=== PATIENT | female | born 1975 | race Two or more races ===

== ENCOUNTER 2016-12-28 09:30 | Emergency (ER) | payer MEDICAID ==
[~2016-12-28] VITALS: Ht 154.9 cm; Wt 75.3 kg
[~2016-12-28 09:30] MED LIST: ALBUTEROL SULF8.5 GM INH; AZITHROMYCIN250 MG ORAL; IBUPROFEN200 M2 ORAL; IBUPROFEN600 MG ORAL; IBUPROFEN600 MG PO; IBUPROFEN800 M1 PO; KEFLEX500 MG ORAL; NORCO 5-325 TA1 EAC1 ORAL; NORCO 5-325 TA1 EACH ORAL; OMEPRAZOLE40 M1 ORAL; PANTOPRAZOLE SO40 MG ORAL; PROMETHAZINE-C118 M1 ORAL; VALIUM5 MG ORAL; ZOFRAN4 MG ORAL
[2016-12-28] MEDS ORDERED: NKM (09:50)
[2016-12-28] MEDS ORDERED: Levofloxacin 500mg tab ORAL ONE (10:15)
--- NOTE | 2016-12-28 10:15 | Emergency Room Report ---
History of Present Illness General Chief Complaint: General Complaint Source: Patient Present Illness HPI Patient is 2 weeks of intermittent upper respiratory infection. Currently she' s got yellow phlegm yellow discharge from the nose and left ear pain. She's also had fevers and chills last night. She took ibuprofen which did not help. She complains about right-sided chest pain also. She has never had pneumonia and does not herself wheezing (prior rx for albuterol). Pain in chest 8/10, pleuritic. No dyspnea. Last period was 2 weeks ago. She denies any nausea vomiting diarrhea however she does have some epigastric discomfort when she takes ibuprofen. In addition to that she has gallstones and wonders whether the right-sided chest pain is related to that. She has intermittent pain from the gall stones but not recently. No dysuria. No flu shot. 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 Period: a week ago Reviewed Nursing Documentation: PMH: Agreed, PSxH: Agreed Nursing Documentation-PMH Past Medical History: No History, Except For Hx Gastrointestinal Problems: Yes - gallstones Review of Systems All Other Systems: negative except mentioned in HPI Physical Exam Vital Signs Date Time Temp Pulse Resp B/P Pulse Ox O2 Delivery O2 Flow Rate FiO2 12/28/16 09:45 97.9 89 16 136/89 99 Room Air Sp02 EP Interpretation: reviewed, normal General Appearance: well appearing, no apparent distress, GCS 15 Head: normocephalic, atraumatic Eyes: bilateral eye PERRL, bilateral eye normal inspection ENT: hearing grossly normal, normal pharynx, normal voice, other - L TM red Neck: full range of motion, supple, no meningismus Respiratory: lungs clear, normal breath sounds, no respiratory distress, speaking full sentences, other - min R chest wall tenderness Cardiovascular #1: regular rate, rhythm Cardiovascular #2: 2+ radial (L) Gastrointestinal: normal inspection, non tender, soft, no mass, non-distended, no guarding Musculoskeletal: digits/nails normal, gait/station normal, normal range of motion Neurologic: alert, normal gait, grossly normal Psychiatric: mood/affect normal Skin: no rash Medical Decision Making Diagnostic Impression: Primary Impression: Earache, left Additional Impressions: Upper respiratory infection Qualified Codes: J06.9 - Acute upper respiratory infection, unspecified Chest pain Qualified Codes: R07.1 - Chest pain on breathing Gallstone Qualified Codes: K80.20 - Calculus of gallbladder without cholecystitis without obstruction ER Course Patient with 2 weeks of URI, now with ear pain and productive sputum and chest pain. Ddx: pneumonia, otitis, bronchitis, pleurisy. H/O gall stones, but exam benign. O2 sat against pneumonia. No labs indicated as clinical diagnosis. Evidence of L otitis media. Antibiotics indicated. Also treated for pain. Pain better. Patient stable for outpatient observation and treatment Last Vital Signs Date Time Temp Pulse Resp B/P Pulse Ox O2 Delivery O2 Flow Rate FiO2 12/28/16 09:45 97.9 89 16 136/89 99 Room Air Status: improved Disposition: HOME, SELF-CARE Condition: Improved Scripts Chlorpheniramine Maleate (Chlorpheniramine Maleate) 4 Mg Tablet 4 MG PO congestion, #14 TAB Prov: Louis Vasquez M.D. 12/28/16 Tramadol Hcl* (ULTRAM*) 50 Mg Tablet 50 MG ORAL Q6H Y for For Pain, #10 TAB 0 Refills Prov: Louis Vasquez M.D. 12/28/16 Codeine/Promethazine Hcl* (PROMETHAZINE-CODEINE SYRUP*) 118 Ml Syrup 5 ML ORAL Q4H Y for For Cough, #60 ML 0 Refills Prov: Louis Vasquez M.D. 12/28/16 Levofloxacin* (LEVAQUIN*) 500 Mg Tablet 500 MG ORAL DAILY, #7 TAB Prov: Louis Vasquez M.D. 12/28/16 Louis Vasquez M.D. Dec 28, 2016 10:15
[2016-12-28] MEDS ORDERED: CHLORPHENIRAMINE4 M1 PO (10:25)
[2016-12-28] MEDS ORDERED: PROMETHAZINE-C118 M1 ORAL (10:25)
[2016-12-28] MEDS ORDERED: TRAMADOL HCL50 MG ORAL (10:25)
[2016-12-28] MEDS ORDERED: LEVAQUIN500 MG ORAL (10:25)
[2016-12-28 10:43] VITALS: BP 136/89
[2016-12-28 10:44] VITALS: BP 136/89
== END 2016-12-28 10:45 | disposition home or self-care (01) ==
LOC: EMR 10:25
DX: H92.02 Otalgia, left ear (principal); J06.9 Acute upper respiratory infection, unspecified; R07.1 Chest pain on breathing; K80.20 Calculus of gallbladder without cholecystitis without obstruction
CPT/HCPCS: 99284

== ENCOUNTER 2017-01-06 00:07 | Emergency (ER) | payer MEDICAID ==
[~2017-01-06] VITALS: Ht 152.4 cm; Wt 74.8 kg
[~2017-01-06 00:07] MED LIST changes: +CHLORPHENIRAMINE4 M1 PO; +LEVAQUIN500 MG ORAL; +NKM; +TRAMADOL HCL50 MG ORAL
[2017-01-06 00:31] VITALS: BP 126/74
[2017-01-06] MEDS ORDERED: DEBROX15 M1 BOTH EARS (00:50)
[2017-01-06] MEDS ORDERED: Ketorolac 60mg Inj IM ONE (01:00)
[2017-01-06 01:16] VITALS: BP 126/74
--- NOTE | 2017-01-06 01:48 | Emergency Room Report ---
History of Present Illness General Chief Complaint: Chest Pain Source: Patient Present Illness HPI 41 YO F with right sided chest pain, radiating to back, right shoulder and right arm for >14 hours. Pain comes and goes. 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 Pain is worse with movement, right shoulder movement, reproducible. Has been taking tramadol and Abx for left sided "ear infection," just finished Abx today. Denies history of DM, HTN, HLD, smoking, ETOH, drug use. No previous AMI. No other medical problems. Allergies: Coded Allergies: No Known Allergies (Unverified , 12/10/13) Patient History Past Medical History: none Past Surgical History: none Pertinent Family History: none Social History: Denies: alcohol use, drug use, smoking Last Menstrual Period: 2 WEEKS AGO Now: No Immunizations: UTD Reviewed Nursing Documentation: PMH: Agreed, PSxH: Agreed Nursing Documentation-PMH Hx Gastrointestinal Problems: Yes - gallstones Review of Systems All Other Systems: negative except mentioned in HPI Physical Exam Vital Signs Date Time Temp Pulse Resp B/P Pulse Ox O2 Delivery O2 Flow Rate FiO2 01/06/17 00:12 97.3 78 16 136/87 98 Room Air Sp02 EP Interpretation: reviewed, normal General Appearance: normal inspection, well appearing, no apparent distress, alert, GCS 15, non-toxic Head: normocephalic, atraumatic Eyes: bilateral eye EOMI, bilateral eye PERRL ENT: normal ENT inspection, hearing grossly normal, normal voice, other - Bilateral cerumen; able to visualize left TM, no sign of bulging or erythema or infection. No ttp to pinna Neck: normal inspection, full range of motion, supple, no bony tend Respiratory: normal inspection, lungs clear, normal breath sounds, no respiratory distress, no retraction, no wheezing, other - Palpation of right chest produces pain, chest symmetrical Cardiovascular #1: regular rate, rhythm, no edema Gastrointestinal: normal inspection, normal bowel sounds, non tender, soft, no guarding, no hernia Genitourinary: no CVA tenderness Musculoskeletal: normal inspection, back normal, normal range of motion, Jada' s Sign negative, other - Right shoulder, right upper back and right arm all tender to palpation. No sign of trauma or infection. ROM intact, tender Neurologic: normal inspection, alert, oriented x3, responsive, teaching artist III-XII nml as tested, motor strength/tone normal, speech normal Psychiatric: normal inspection, judgement/insight normal, mood/affect normal Skin: normal inspection, normal color, no rash Lymphatic: normal inspection Medical Decision Making Diagnostic Impression: Primary Impression: Musculoskeletal pain Additional Impression: Cerumen impaction Qualified Codes: H61.23 - Impacted cerumen, bilateral ER Course Resolved left otitis media. Bilateral cerumen. Advised to STOP using Qtips. Debrox Rx given Most likely MSK pain. Reproducible, worse with movement. Likely occupation related. ECG done as screening exam. NSR. No ischemia. IM toradol given in ED with resolution of pain DC home Recommended PMD followup EKG Diagnostic Results Rate: normal Rhythm: NSR ST Segments: no acute changes ASA given to the pt in ED: No Rhythm Strip Diag. Results EP Interpretation: yes Rate: 77 Rhythm: NSR, no PVC's, no ectopy Last Vital Signs Date Time Temp Pulse Resp B/P Pulse Ox O2 Delivery O2 Flow Rate FiO2 01/06/17 01:16 97.3 16 126/74 98 Room Air 01/06/17 00:33 78 Status: improved Disposition: HOME, SELF-CARE Condition: Improved Scripts Carbamide Peroxide (DEBROX) 15 Ml Drops 10 DROP BOTH EARS TWICE A DAY for 4 Days, ML 0 Refills Prov: RANDY YOUNG M.D. 01/06/17 Patient Instructions: Cerumen Impaction, Nonspecific Chest Pain, Musculoskeletal Pain Additional Instructions: - Use ear drops as prescribed to remove wax - STOP using Qtips - Take Tramadol as needed for pain - Follow up with your doctor in 2-3 days RANDY YOUNG M.D. Jan 06, 2017 01:48
--- NOTE | 2017-01-06 13:45 | Cardiology Report ---
APPROVED REPORT EKG Measurement Heart [id number] Normal sinus rhythm Cannot rule out Anterior infarct, age undetermined Abnormal ECG
== END 2017-01-06 01:18 | disposition home or self-care (01) ==
LOC: EMR 00:32
DX: M79.1 Myalgia (principal); H61.23 Impacted cerumen, bilateral
CPT/HCPCS: 93005; 96372; 99283

== ENCOUNTER 2017-04-04 09:47 | Emergency (ER) | payer MEDICAID ==
[~2017-04-04] VITALS: Ht 160 cm; Wt 77.1 kg
[~2017-04-04 09:47] MED LIST changes: +DEBROX15 M1 BOTH EARS
[2017-04-04] MEDS ORDERED: Famotidine 20 MG/ 2ML VIAL IVP ONE (10:15)
[2017-04-04] MEDS ORDERED: fentaNYL 100 mcg/2 mL IV ONE (10:15)
--- NOTE | 2017-04-04 10:15 | Emergency Room Report ---
History of Present Illness General Chief Complaint: Abdominal Pain Source: Patient Present Illness HPI Patient presents with epigastric pain and headache that began yesterday. She's been vomiting a lot. Has a history of gallstones. Headache is 8/10 as the abdominal pain. Abdominal pain radiates somewhat towards her back. She's had some loose stools have been brown and rollins color. No blood. Her last period was last month and normal for her. She denies any dysuria. She's had some aches in her legs before all this began. She's never had headaches like this before. Is not severe or thunderclap. It's frontal and occipital. There's no neck pain. There's no change in vision. She to took 2 Motrin 800 mg tablets last night and states that did not help. Addition to that she also took Tylenol. Allergies: Coded Allergies: No Known Allergies (Unverified , 12/10/13) Patient History Past Medical History: see triage record Social History: Denies: smoking Social History Narrative from home Last Menstrual Period: 03/05/17 Now: No Reviewed Nursing Documentation: PMH: Agreed, PSxH: Agreed Nursing Documentation-PMH Hx Gastrointestinal Problems: Yes - gallstones Review of Systems All Other Systems: negative except mentioned in HPI Physical Exam Vital Signs Date Time Temp Pulse Resp B/P Pulse Ox O2 Delivery O2 Flow Rate FiO2 04/04/17 09:51 99.0 97 15 119/81 96 Room Air Sp02 EP Interpretation: reviewed, normal General Appearance: well appearing, no apparent distress, GCS 15 Head: normocephalic Eyes: bilateral eye PERRL, bilateral eye anticteric, bilateral eye normal inspection ENT: moist mucus membranes Neck: full range of motion, supple, no meningismus Respiratory: lungs clear, normal breath sounds Cardiovascular #1: regular rate, rhythm Cardiovascular #2: 2+ radial (R) Gastrointestinal: normal inspection, normal bowel sounds, no mass, non- distended, no guarding, no rebound, tenderness - epigastric Musculoskeletal: back normal, gait/station normal, normal range of motion Neurologic: alert, oriented x3, remote sensing technologist III-XII nml as tested, motor strength/tone normal, DTRs symmetric, sensory intact, cerebellar normal, normal gait, speech normal Psychiatric: mood/affect normal Skin: normal inspection, warm/dry Medical Decision Making Diagnostic Impression: Primary Impression: Abdominal pain Qualified Codes: R10.13 - Epigastric pain Additional Impressions: UTI (urinary tract infection) Qualified Codes: N30.00 - Acute cystitis without hematuria Head ache Qualified Codes: R51 - Headache ER Course Patient presents with headache and right upper quadrant pain with vomiting slight diarrhea and some myalgias. Differential includes food poisoning, exacerbation of gallstones, cholecystitis, peptic ulcer disease, gastritis, gastroenteritis amongst others. Patient will undergo evaluation with labs. The patient will be treated IV hydration, Zofran, Pepcid and fentanyl. Labs significant for normal WBC an LFTs/lipase. + UTI. Rocephin given. Improved with treatment. Naresh PO. Patient stable for outpatient observation and treatment. Laboratory Tests Test 04/04/17 10:25 White Blood Count 8.2 K/UL (4.8-10.8) Red Blood Count 4.74 M/UL (4.20-5.40) Hemoglobin 13.9 G/DL (12.0-16.0) Hematocrit 40.7 % (37.0-47.0) Mean Corpuscular Volume 86 FL (80-99) Mean Corpuscular Hemoglobin 29.3 PG (27.0-31.0) Mean Corpuscular Hemoglobin Concent 34.2 G/DL (32.0-36.0) Red Cell Distribution Width 11.3 % (11.6-14.8) L Platelet Count 208 K/UL (150-450) Mean Platelet Volume 7.1 FL (6.5-10.1) Neutrophils (%) (Auto) 79.3 % (45.0-75.0) H Lymphocytes (%) (Auto) 14.4 % (20.0-45.0) L Monocytes (%) (Auto) 5.2 % (1.0-10.0) Eosinophils (%) (Auto) 0.6 % (0.0-3.0) Basophils (%) (Auto) 0.6 % (0.0-2.0) Urine Color Pale yellow Urine Appearance Slightly cloudy Urine pH 5 (4.5-8.0) Urine Specific [place] 1.010 (1.005-1.035) Urine Protein Negative (NEGATIVE) Urine Glucose (UA) Negative (NEGATIVE) Urine Ketones Negative (NEGATIVE) Urine Occult Blood 2+ (NEGATIVE) H Urine Nitrite Negative (NEGATIVE) Urine Bilirubin Negative (NEGATIVE) Urine Urobilinogen Normal MG/DL (0.0-1.0) Urine Leukocyte Esterase 2+ (NEGATIVE) H Urine RBC 2-4 /HPF (0 - 2) H Urine WBC 5-10 /HPF (0 - 2) H Urine Squamous Epithelial Cells Moderate /LPF (NONE/OCC) H Urine Bacteria Few /HPF (NONE) Urine HCG, Qualitative Negative Sodium Level 134 mEQ/L (135-145) L Potassium Level 3.5 mEQ/L (3.4-4.9) Chloride Level 94 mEQ/L (98-107) L Carbon Dioxide Level 23 mEQ/L (20-30) Anion Gap 17 (5-15) H Blood Urea Nitrogen 7 mg/dL (7-23) Creatinine 0.7 mg/dL (0.5-0.9) Estimate Glomerular Filtration Rate > 60 mL/min (>60) Glucose Level 156 mg/dL (74-106) H Calcium Level 9.4 mg/dL (8.6-10.2) Total Bilirubin 0.6 mg/dL (0.0-1.2) Aspartate Amino Transferase (AST) 22 U/L (5-40) Alanine Aminotransferase (ALT) 33 U/L (3-33) Alkaline Phosphatase 54 U/L (35-104) Total Protein 7.5 g/dL (6.6-8.7) Albumin 4.6 g/dL (3.5-5.2) Globulin 2.9 g/dL Albumin/Globulin Ratio 1.5 (1.0-2.7) Lipase 17 U/L (< 60) Last Vital Signs Date Time Temp Pulse Resp B/P Pulse Ox O2 Delivery O2 Flow Rate FiO2 04/04/17 13:57 88 16 110/70 98 Room Air 04/04/17 10:58 98.9 Status: improved Disposition: HOME, SELF-CARE Condition: Improved Scripts Tramadol Hcl* (ULTRAM*) 50 Mg Tablet 50 MG ORAL Q6H Y for For Pain, #10 TAB 0 Refills Prov: Louis Vasquez M.D. 04/04/17 Ondansetron Odt* (ZOFRAN ODT*) 4 Mg Tab.rapdis 4 MG ORAL EVERY 8 HOURS, #6 TAB 0 Refills Prov: Louis Vasquez M.D. 04/04/17 Nitrofurantoin Monohyd/M-Cryst* (MACROBID 100 MG*) 100 Mg Capsule 100 MG ORAL EVERY 12 HOURS, #14 CAP Prov: Louis Vasquez M.D. 04/04/17 Louis Vasquez M.D. April 04, 2017 10:15
[2017-04-04 10:25] VITALS: BP 130/83
[2017-04-04 10:38] LABS: APPEARANCE,URINE SLIGHTLY CLOUDY; KETONES,URINE NEGATIVE (NEGATIVE); LEUKOCYTE ESTERASE ,URINE 2+ (NEGATIVE); NITRITE,URINE NEGATIVE (NEGATIVE); PH,URINE 5 (4.5-8.0); PROTEIN,URINE NEGATIVE (NEGATIVE); UROBILINOGEN,URINE NORMAL MG/DL (0.0-1.0)
[2017-04-04 10:43] LABS: BASOPHILS % (AUTO) 0.6 % (0.0-2.0); EOSINOPHILS % (AUTO) 0.6 % (0.0-3.0); LYMPHOCYTES % (AUTO) 14.4 % (20.0-45.0); MEAN CORPUSCULAR HEMOGLOBIN 29.3 PG (27.0-31.0); MEAN CORPUSCULAR HGB CONC 34.2 G/DL (32.0-36.0); MEAN CORPUSCULAR VOLUME 86 FL (80-99); MEAN PLATELET VOLUME 7.1 FL (6.5-10.1); MONOCYTES % (AUTO) 5.2 % (1.0-10.0); NEUTROPHILS % (AUTO) 79.3 % (45.0-75.0); PLATELET COUNT 208 K/UL (150-450); RED BLOOD COUNT 4.74 M/UL (4.20-5.40); RED CELL DISTRIBUTION WIDTH 11.3 % (11.6-14.8); WHITE BLOOD COUNT 8.2 K/UL (4.8-10.8)
[2017-04-04 10:48] LABS: BACTERIA,URINE FEW /HPF; SQUAMOUS EPITHELIAL CELL,UR MODERATE /LPF (NONE/OCC)
[2017-04-04 10:49] LABS: ALANINE AMINOTRANSFERASE 33 U/L (3-33); ALBUMIN/GLOBULIN RATIO 1.5 (1.0-2.7); ANION GAP 17 (5-15); ASPARTATE AMINO TRANSFERASE 22 U/L (5-40); CALCIUM 9.4 mg/dL (8.6-10.2); CARBON DIOXIDE 23 mEQ/L (20-30); CHLORIDE 94 mEQ/L (98-107); CREATININE 0.7 mg/dL (0.5-0.9); GLOMERULAR FILTRATION RATE > 60 mL/min (>60); HEMOLYSIS 3; LIPASE 17 U/L (< 60); POTASSIUM 3.5 mEQ/L (3.4-4.9); SODIUM 134 mEQ/L (135-145); TOTAL PROTEIN 7.5 g/dL (6.6-8.7)
[2017-04-04 11:57] VITALS: BP 116/78
[2017-04-04] MEDS ORDERED: cefTRIAXone 1 GM in NS 55 ML IVPB ONE (12:45)
[2017-04-04 13:21] VITALS: BP 124/76
[2017-04-04] MEDS ORDERED: TRAMADOL HCL50 MG ORAL (13:47)
[2017-04-04] MEDS ORDERED: ONDANSETRON ODT4 MG ORAL (13:47)
[2017-04-04] MEDS ORDERED: NITROFURANTOIN100 M2 ORAL (13:47)
[2017-04-04 13:57] VITALS: BP 110/70
== END 2017-04-04 13:59 | disposition home or self-care (01) ==
LOC: EMR 10:13
DX: R10.13 Epigastric pain (principal); N30.00 Acute cystitis without hematuria; R51 Headache
CPT/HCPCS: 36415; 80053; 81003; 81025; 83690; 85025; 96360; 96374; 96375; 99284; J0696; J2405; J3010; S0028

== ENCOUNTER 2017-07-15 21:48 | Emergency (ER) | payer MEDICAID ==
[~2017-07-15] VITALS: Ht 152.4 cm; Wt 75.7 kg
[~2017-07-15 21:48] MED LIST changes: +NITROFURANTOIN100 M2 ORAL; +ONDANSETRON ODT4 MG ORAL
[2017-07-15 21:50] VITALS: BP 116/71
--- NOTE | 2017-07-15 22:25 | Emergency Room Report ---
History of Present Illness General Chief Complaint: Female Urogenital Problems Source: Patient Present Illness HPI Patient is a 41-year-old female who presented after increased abdominal discomfort as well as dysuria. She gradual onset of symptoms over the past few days. She denies being . She reports having a prior history of diabetes. She reported having increased urinary frequency. She had not been vomiting. She denied any diarrhea. Allergies: Coded Allergies: No Known Allergies (Unverified , 12/10/13) Patient History Past Medical History: see triage record Last Menstrual Period: JUN 20 Now: No Reviewed Nursing Documentation: PMH: Agreed, PSxH: Agreed Review of Systems All Other Systems: negative except mentioned in HPI Physical Exam Vital Signs Date Time Temp Pulse Resp B/P (MAP) Pulse Ox O2 Delivery O2 Flow Rate FiO2 07/15/17 21:50 97.7 106 18 116/71 98 Room Air Sp02 EP Interpretation: reviewed, normal General Appearance: normal inspection, well appearing, no apparent distress, alert, GCS 15 Head: atraumatic ENT: normal ENT inspection, hearing grossly normal, normal voice Neck: normal inspection, full range of motion, supple, no bony tend Respiratory: normal inspection, lungs clear, normal breath sounds, no respiratory distress, no retraction, no wheezing Cardiovascular #1: regular rate, rhythm, no edema Gastrointestinal: normal inspection, normal bowel sounds, non tender, soft, no guarding, no hernia Genitourinary: no CVA tenderness Musculoskeletal: normal inspection, back normal, normal range of motion Neurologic: normal inspection, alert, responsive, speech normal Psychiatric: normal inspection, judgement/insight normal, mood/affect normal Skin: normal inspection, normal color, no rash Medical Decision Making Diagnostic Impression: Primary Impression: UTI (urinary tract infection) ER Course Patient presented for abdominal pain. Differential diagnoses included ischemic bowel, appendicitis, perforated viscus, abdominal aortic aneurysm, inferior myocardial infarction, viral gastroenteritis Because of complexity of patient's case laboratory testing were ordered.Laboratory testing was notable for evidence of a mild urinary tract infection. The patient is advised to follow up with primary care doctor in 1- 2 days. Patient is advised to return if any worsening condition or if any changes in status that are concerning. Labs Test 07/15/17 21:50 Urine Color Pale yellow Urine Appearance Clear Urine pH 7 (4.5-8.0) Urine Specific [place] 1.005 (1.005-1.035) Urine Protein Negative (NEGATIVE) Urine Glucose (UA) Negative (NEGATIVE) Urine Ketones Negative (NEGATIVE) Urine Occult Blood Negative (NEGATIVE) Urine Nitrite Negative (NEGATIVE) Urine Bilirubin Negative (NEGATIVE) Urine Urobilinogen Normal MG/DL (0.0-1.0) Urine Leukocyte Esterase 2+ (NEGATIVE) Urine RBC 0-2 /HPF (0 - 2) Urine WBC 2-4 /HPF (0 - 2) Urine Squamous Epithelial Cells Few /LPF (NONE/OCC) Urine Amorphous Sediment Few /LPF (NONE) Urine Bacteria Few /HPF (NONE) Urine HCG, Qualitative Negative Last Vital Signs Date Time Temp Pulse Resp B/P (MAP) Pulse Ox O2 Delivery O2 Flow Rate FiO2 07/15/17 21:50 97.7 106 18 116/71 98 Room Air Status: improved Disposition: HOME, SELF-CARE Condition: Stable Scripts Cephalexin* (KEFLEX*) 500 Mg Capsule 500 MG ORAL Q6H, #28 CAP 0 Refills Prov: Osbaldo Gay 07/15/17 Referrals: NOT CHOSEN IPA/,REFERRING (PCP) Osbaldo Gay Jul 15, 2017 22:25
[2017-07-15 22:39] LABS: APPEARANCE,URINE CLEAR; KETONES,URINE NEGATIVE (NEGATIVE); LEUKOCYTE ESTERASE ,URINE 2+ (NEGATIVE); NITRITE,URINE NEGATIVE (NEGATIVE); PH,URINE 7 (4.5-8.0); PROTEIN,URINE NEGATIVE (NEGATIVE); UROBILINOGEN,URINE NORMAL MG/DL (0.0-1.0)
[2017-07-15 22:46] LABS: AMORPHOUS SEDIMENT,UR FEW /LPF; BACTERIA,URINE FEW /HPF; RBC,URINE 0-2 /HPF (0 - 2); SQUAMOUS EPITHELIAL CELL,UR FEW /LPF (NONE/OCC)
[2017-07-15] MEDS ORDERED: KEFLEX500 MG ORAL (22:56)
[2017-07-15 23:00] VITALS: BP 120/76
== END 2017-07-15 23:00 | disposition home or self-care (01) ==
LOC: EMR 22:00
DX: N39.0 Urinary tract infection, site not specified (principal); E11.9 Type 2 diabetes mellitus without complications
CPT/HCPCS: 81003; 81025; 82962; 99283

== ENCOUNTER 2019-02-18 16:52 | Emergency (ER) | payer MEDICAID ==
[~2019-02-18] VITALS: Ht 157.5 cm; Wt 76.7 kg
--- NOTE | 2019-02-18 17:09 | NUR ---
ED Nurse Note: Pt came in from home due to RUQ abdominal pain 10/10 chapito, no complaint of n/v/d. Pt stated she had hx of Gallstone and this pain "feels the same". AOx4, VSS. Will cont to monitor.
[2019-02-18 17:13] VITALS: BP 126/85
[2019-02-18] MEDS ORDERED: Morphine Sulfate 4mg/ml Inj (IV USE ONLY) IVP ONE (17:15)
[2019-02-18] MEDS ORDERED: Isovue-300 100ml vial INJ PRN (17:15)
--- NOTE | 2019-02-18 17:20 | NUR ---
ED Nurse Note: Blood and urine collected and sent to lab.
[2019-02-18 17:25] LABS: APPEARANCE,URINE CLEAR; BILIRUBIN, URINE NEGATIVE (NEGATIVE); COLOR,URINE PALE YELLOW; GLUCOSE, URINE (UA) 3+ (NEGATIVE); KETONES,URINE NEGATIVE (NEGATIVE); LEUKOCYTE ESTERASE ,URINE 2+ (NEGATIVE); NITRITE,URINE NEGATIVE (NEGATIVE); PH,URINE 6 (4.5-8.0); PROTEIN,URINE 1+ (NEGATIVE); UROBILINOGEN,URINE NORMAL MG/DL (0.0-1.0)
[2019-02-18 17:29] LABS: ANION GAP 9 mmol/L (5-15); BLOOD UREA NITROGEN 11 mg/dL (7-18); CALCIUM 8.7 MG/DL (8.5-10.1); CARBON DIOXIDE 28 MMOL/L (21-32); CHLORIDE 102 MMOL/L (98-107); CREATININE 0.7 MG/DL (0.55-1.30); POTASSIUM 3.9 MMOL/L (3.5-5.1); SODIUM 139 MMOL/L (136-145)
[2019-02-18 17:30] LABS: BASOPHILS % (AUTO) 1.3 % (0.0-2.0); EOSINOPHILS % (AUTO) 5.1 % (0.0-3.0); HEMATOCRIT 38.6 % (37.0-47.0); HEMOGLOBIN 13.2 G/DL (12.0-16.0); LYMPHOCYTES % (AUTO) 40.4 % (20.0-45.0); MEAN CORPUSCULAR VOLUME 86 FL (80-99); MONOCYTES % (AUTO) 7.2 % (1.0-10.0); NEUTROPHILS % (AUTO) 46.1 % (45.0-75.0); PLATELET COUNT 220 K/UL (150-450); RED BLOOD COUNT 4.51 M/UL (4.20-5.40); RED CELL DISTRIBUTION WIDTH 11.4 % (11.6-14.8)
[2019-02-18] MEDS ORDERED: Tylenol #3 tab (300mg/30mg) ORAL ONE (17:30)
[2019-02-18 17:33] LABS: ALANINE AMINOTRANSFERASE 44 U/L (12-78); ALBUMIN 4.2 G/DL (3.4-5.0); ALBUMIN/GLOBULIN RATIO 1.2 (1.0-2.7); ALKALINE PHOSPHATASE 82 U/L (46-116); ASPARTATE AMINO TRANSFERASE 17 U/L (15-37); BILIRUBIN,TOTAL 0.2 MG/DL (0.2-1.0)
--- NOTE | 2019-02-18 17:57 | Emergency Room Report ---
History of Present Illness General Chief Complaint: Abdominal Pain Source: Patient, Medical Record Present Illness HPI 43-year-old female presents ED for evaluation.patient c/o R sided abd pain. started 1 hour ago. sharp, 9/10 nonradiating. localized to RUQ. h/o galllstones. deies fevers or chills. denies nausea or vomiting. No other aggravating relieving factors. Denies any other associated symptoms Allergies: Coded Allergies: No Known Allergies (Unverified , 12/10/13) Patient History Past Medical History: none Past Surgical History: none Pertinent Family History: none Social History: Denies: smoking, alcohol use, drug use Last Menstrual Period: 02/14/19 Now: No Immunizations: UTD Reviewed Nursing Documentation: PMH: Agreed; PSxH: Agreed Nursing Documentation-PMH Past Medical History: No History, Except For Hx Cardiac Problems: No - Gall stones Hx Dialysis: No - CHOLECYSTITIS Review of Systems All Other Systems: negative except mentioned in HPI Physical Exam Vital Signs Date Time Temp Pulse Resp B/P (MAP) Pulse Ox O2 Delivery O2 Flow Rate FiO2 02/18/19 16:55 98.4 72 18 143/85 98 Room Air Sp02 EP Interpretation: reviewed, normal General Appearance: no apparent distress, alert, GCS 15, non-toxic Head: normocephalic, atraumatic Eyes: bilateral eye normal inspection, bilateral eye PERRL ENT: hearing grossly normal, normal pharynx, no angioedema, normal voice Neck: full range of motion, supple/symm/no masses Respiratory: chest non-tender, lungs clear, normal breath sounds, speaking full sentences Cardiovascular #1: regular rate, rhythm, no edema Cardiovascular #2: 2+ carotid (R), 2+ carotid (L), 2+ radial (R), 2+ radial (L) , 2+ dorsalis pedis (R), 2+ dorsalis pedis (L) Gastrointestinal: normal bowel sounds, soft, non-distended, no guarding, no rebound, tenderness - RUQ Rectal: deferred Genitourinary: normal inspection, no CVA tenderness Musculoskeletal: back normal, gait/station normal, normal range of motion, non- tender Neurologic: alert, oriented x3, responsive, motor strength/tone normal, sensory intact, speech normal Psychiatric: judgement/insight normal, memory normal, mood/affect normal, no suicidal/homicidal ideation Reflexes: 3+ bicep (R), 3+ bicep (L), 3+ tricep (R), 3+ tricep (L), 3+ knee (R) , 3+ knee (L) Skin: normal color, no rash, warm/dry, well hydrated Lymphatic: no adenopathy Medical Decision Making Diagnostic Impression: Primary Impression: Cholelithiasis Qualified Codes: K80.20 - Calculus of gallbladder without cholecystitis without obstruction ER Course Hospital Course 43 yo F presents to ED c/o RUQ pain. h/o gallstones Differential diagnosis includes-appendicitis, cholecystitis, small bowel obstruction, gastritis, Clinical course Patient placed on stretcher. After initial history and physical I ordered labs , IV fluids, pain medications and CT scan Labs - no leukocytosis, electrolytes ok, LFTs normal CT scan shows gallstones but no gallbladder obstruction or distention area no Gallbladder wall thickening. No pericholecystic fluid Discussed findings with patient. No signs of cholecystitis. No signs of biliary obstruction. Patient will be discharged to home. Does not have a PMD. We'll provide referrals I feel this is a highly complex case requiring extensive working including EKG/ Rhythm strip, Xray/CT/US, Blood/urine lab work, repeat exams while in ED, and administration of strong opiates/narcotics for pain control, admission to hospital or close patient follow up. Diagnosis - cholelithiasis Stable and discharged to home with Rx Tylenol #3. Followup with PMD. Return to ED if symptoms recur or worsen Labs Test 02/18/19 17:06 White Blood Count 7.0 K/UL (4.8-10.8) Red Blood Count 4.51 M/UL (4.20-5.40) Hemoglobin 13.2 G/DL (12.0-16.0) Hematocrit 38.6 % (37.0-47.0) Mean Corpuscular Volume 86 FL (80-99) Mean Corpuscular Hemoglobin 29.2 PG (27.0-31.0) Mean Corpuscular Hemoglobin Concent 34.1 G/DL (32.0-36.0) Red Cell Distribution Width 11.4 % (11.6-14.8) Platelet Count 220 K/UL (150-450) Mean Platelet Volume 6.6 FL (6.5-10.1) Neutrophils (%) (Auto) 46.1 % (45.0-75.0) Lymphocytes (%) (Auto) 40.4 % (20.0-45.0) Monocytes (%) (Auto) 7.2 % (1.0-10.0) Eosinophils (%) (Auto) 5.1 % (0.0-3.0) Basophils (%) (Auto) 1.3 % (0.0-2.0) Urine Color Pale yellow Urine Appearance Clear Urine pH 6 (4.5-8.0) Urine Specific [place] 1.005 (1.005-1.035) Urine Protein 1+ (NEGATIVE) Urine Glucose (UA) 3+ (NEGATIVE) Urine Ketones Negative (NEGATIVE) Urine Blood 5+ (NEGATIVE) Urine Nitrite Negative (NEGATIVE) Urine Bilirubin Negative (NEGATIVE) Urine Urobilinogen Normal MG/DL (0.0-1.0) Urine Leukocyte Esterase 2+ (NEGATIVE) Urine RBC 5-10 /HPF (0 - 2) Urine WBC 2-4 /HPF (0 - 2) Urine Squamous Epithelial Cells Few /LPF (NONE/OCC) Urine Bacteria Few /HPF (NONE) Urine HCG, Qualitative Negative (NEGATIVE) Sodium Level 139 MMOL/L (136-145) Potassium Level 3.9 MMOL/L (3.5-5.1) Chloride Level 102 MMOL/L (98-107) Carbon Dioxide Level 28 MMOL/L (21-32) Anion Gap 9 mmol/L (5-15) Blood Urea Nitrogen 11 mg/dL (7-18) Creatinine 0.7 MG/DL (0.55-1.30) Estimat Glomerular Filtration Rate > 60 mL/min (>60) Glucose Level 195 MG/DL (74-106) Calcium Level 8.7 MG/DL (8.5-10.1) Total Bilirubin 0.2 MG/DL (0.2-1.0) Aspartate Amino Transf (AST/SGOT) 17 U/L (15-37) Alanine Aminotransferase (ALT/SGPT) 44 U/L (12-78) Alkaline Phosphatase 82 U/L (46-116) Total Protein 7.7 G/DL (6.4-8.2) Albumin 4.2 G/DL (3.4-5.0) Globulin 3.5 g/dL Albumin/Globulin Ratio 1.2 (1.0-2.7) Lipase 124 U/L (73-393) Human Chorionic Gonadotropin, Qual Negative (NEGATIVE) CT/MRI/US Diagnostic Results CT/MRI/US Diagnostic Results : Imaging Test Ordered: CT A/P Impression 2 partially calcified gallstones each measuring around 2 cm are near the area of the gallbladder neck with gallbladder distention measuring up to 5.5 cm in diameter axial 40 No surrounding inflammatory change, free fluid or evidence of wall thickening identified Clinically correlate Basilar atelectasis 1.4 cm nonspecific low-density focus within the upper spleen Abdominal solid organs appear within limits No bowel dilation or free air Normal caliber appendix without secondary signs No free fluid The urinary bladder is distended Last Vital Signs Date Time Temp Pulse Resp B/P (MAP) Pulse Ox O2 Delivery O2 Flow Rate FiO2 02/18/19 17:13 98.4 83 18 126/85 99 Room Air Status: improved Disposition: HOME, SELF-CARE Condition: Stable Scripts Acetaminophen With Codeine (T#3) (TYLENOL #3 TAB*) Y Tab 1 TAB ORAL Q8H PRN for For Pain, #10 TAB Prov: Brendan Mclaughlin MD 02/18/19 Referrals: NOT CHOSEN IPA/,REFERRING (PCP) Brendan Mclaughlin MD Feb 18, 2019 17:57
[2019-02-18 18:29] VITALS: BP 108/64
[2019-02-18] MEDS ORDERED: ACETAMINOPHEN-1 EAC1 ORAL (18:41)
[2019-02-18 18:42] VITALS: BP 108/64
--- NOTE | 2019-02-18 18:42 | NUR ---
ER DISCHARGE NOTE: Patient is cleared to be discharged per ERMD, pt is aox4, on room air, with stable vital signs. pt was given dc and prescription instructions, pt was able to verbalize understanding, pt id band and iv site removed without complications. pt is able to ambulate with steady gait. pt took all belongings.
--- NOTE | 2019-02-19 08:29 | Diagnostic Imaging Report ---
Clinical Indication: Right upper quadrant abdominal pain Technique: No oral contrast utilized, per emergency room physician request IV administration nonionic contrast. Venous phase spiral acquisition obtained through the abdomen and pelvis. Multiplanar reconstructions were generated. Total dose length product 1003 mGycm. CTDIvol(s) 18 mGy. Dose reduction achieved using automated exposure control Comparison: none Findings: The appendix is normal. No evidence of diverticulosis or diverticulitis. No small bowel distention. Distal esophagus, stomach, duodenum are unremarkable. No free or loculated intraperitoneal gas or fluid is evident. The gallbladder contains gallstones. The gallbladder is distended. However, the wall is not thickened and there is no pericholecystic inflammation. The liver, bile ducts, pancreas are unremarkable. Spleen contains numerous calcifications. It contains a 1.4 cm low-attenuation lesion in the upper pole The adrenals and left kidney are unremarkable. The right kidney demonstrates a subcentimeter low-attenuation lesion which is too small to characterize. No retroperitoneal or mesenteric mass or adenopathy. Normal uterus and ovaries. No pelvic mass or adenopathy. The included lung bases demonstrate some dependent atelectatic changes, are otherwise clear. The bones are unremarkable. Impression: Cholelithiasis. Gallbladder is distended, but there is no bladder wall thickening or pericholecystic inflammation. Consider hepatobiliary nuclear scan for further evaluation if there is high clinical suspicion for acute cholecystitis No definite acute process 1.4 cm nonspecific upper pole low-attenuation splenic lesion, likely but not definitively a cyst Subcentimeter low-attenuation right renal lesion, too small to characterize, most likely benign simple cysts. No further follow-up necessary Basilar pulmonary atelectatic changes incidentally noted This agrees with the preliminary interpretation provided overnight by [facility] teleradiology service. The CT scanner at [facility] is accredited by the [employer] and the scans are performed using protocols designed to limit radiation exposure to as low as reasonably achievable to attain images of sufficient resolution adequate for diagnostic evaluation.
== END 2019-02-18 18:42 | disposition home or self-care (01) ==
LOC: EMR 17:36
DX: K80.20 Calculus of gallbladder without cholecystitis without obstruction (principal)
CPT/HCPCS: 36415; 74177; 80053; 81003; 81025; 83690; 84703; 85025; 96374; 99284; Q9967